=== PATIENT | female | born 1990 | race Caucasian/White ===

== ENCOUNTER → 2018-02-13 | Outpatient (CLI) | payer BC ==
[2018-02-13 11:31] LABS: BASO % 0.1 %; BASO ABS # 0.02 K/uL (0-0.2); EOS % 0.7 %; EOS ABS # 0.09 K/uL (0-0.5); HEMOGLOBIN 12.6 g/dL (12.0-16.0); IG# 0.03 K/uL (0.00-0.02); LYMPH % 19.8 %; LYMPH ABS # 2.66 K/uL (1.2-3.4); MEAN CELL VOLUME 81.2 fL (80-100); MEAN CORPUSCULAR HEMOGLOBIN 26.9 pg (25-34); MEAN CORPUSCULAR HGB CONC 33.2 g/dl (32-36); MEAN PLATELET VOLUME 8.4 fL (7.4-10.4); MONO % 4.6 %; MONO ABS # 0.62 K/uL (0.11-0.59); NEUT % 74.6 %; PLATELET COUNT 392 K/uL (130-400); RED CELL DISTRIBUTION WIDTH CV 13.9 % (11.5-14.5); RED CELL DISTRIBUTION WIDTH SD 41.3 fL (36.4-46.3); WHITE BLOOD COUNT 13.42 K/uL (4.8-10.8)
--- NOTE | 2018-02-13 11:44 | DIAGNOSTIC IMAGING REPORT ---
(CHEST) THORAX WITHOUT CLINICAL HISTORY: 27 years-old Female presenting with cough, asthma. TECHNIQUE: Multidetector CT imaging of the chest was performed without the use of intravenous contrast. IV contrast: None. A dose lowering technique was used consistent with the principles of ALARA (as low as reasonably achievable). COMPARISON: None. CT DOSE (mGy.cm): The estimated cumulative dose is 1671.17 mGy.cm. FINDINGS: Hair Boiler topogram: Unremarkable. On soft tissue windows, normal thyroid and thoracic inlet. Residual thymic tissue noted. No axillary, supraclavicular, hilar, or mediastinal lymphadenopathy. Normal aorta. Normal heart size. No pericardial or pleural effusion. Hepatic steatosis. On lung windows, no focal infiltrate or nodule. Airways patent. On bone windows, normal osseous structures. IMPRESSION: 1. No acute intrathoracic pathology. 2. Hepatic steatosis. Electronically signed by: Cassius Melendez M.D. 02/13/2018 11:43 AM Dictated Date/Time: 02/13/2018 11:39 AM
--- NOTE | 2018-02-13 11:45 | DIAGNOSTIC IMAGING REPORT ---
CT OF THE SINUSES WITHOUT CONTRAST FUSION PROTOCOL CLINICAL HISTORY: Cough. Asthma. COMPARISON STUDY: No previous studies for comparison. TECHNIQUE: Axial images of the sinuses were obtained without IV contrast according to the Fusion protocol. Coronal reformats were viewed. FINDINGS: Visualized portions of the intracranial contents are unremarkable this unenhanced exam. Mastoid air cells are clear. There is no fluid within the middle ears. The ossicles are intact. Orbits are unremarkable. No mass is present within the sinuses or the nasal cavity. There is mild rightward deviation of the nasal septum with minimal spur formation. The major drainage pathways for the sinuses are patent. No air-fluid levels are present. Right frontal sinuses are under developed. The sinuses are essentially clear. IMPRESSION: 1. Clear paranasal sinuses. 2. Patent major drainage pathways. 3. Mild rightward deviation of the nasal septum. Electronically signed by: Rodrigue Bush M.D. 02/13/2018 11:44 AM Dictated Date/Time: 02/13/2018 11:40 AM
== END | disposition home or self-care (01) ==
LOC: C.CTS 11:11
PROVIDERS: ATTEND Physician Assistant
DX: J45.909 Unspecified asthma, uncomplicated (principal); R05 Cough; K76.0 Fatty (change of) liver, not elsewhere classified; J34.2 Deviated nasal septum

== ENCOUNTER → 2018-02-27 | Outpatient (CLI) | payer BC | END | disposition home or self-care (01) | LOC: C.NEUR 13:32 | PROVIDERS: ATTEND Physician Assistant | DX: R05 Cough (principal); R06.89 Other abnormalities of breathing; J45.909 Unspecified asthma, uncomplicated ==

== ENCOUNTER → 2018-03-07 | Outpatient (CLI) | payer BC ==
--- NOTE | 2018-03-07 08:29 | DIAGNOSTIC IMAGING REPORT ---
(BARIUM SWALLOW) ESOPHAGUS CLINICAL HISTORY: COUGH COMPARISON STUDY: None. FLUOROSCOPY TIME: 1 minute.. FINDINGS: The patient swallowed barium without difficulty. The contours of the hypopharynx are within normal limits. The esophagus is normal in course, caliber, motility. No hiatus hernia. No gastroesophageal reflux. The barium tablet passed without difficulty. IMPRESSION: Normal barium swallow. Electronically signed by: Kwabena Gutierrez M.D. 03/07/2018 8:28 AM Dictated Date/Time: 03/07/2018 8:27 AM
== END | disposition home or self-care (01) ==
LOC: C.RAD 07:52
PROVIDERS: ATTEND Physician Assistant
DX: R05 Cough (principal)